=== PATIENT | female | born 1955 | race Caucasian/White ===

== ENCOUNTER → 2021-06-04 | Outpatient (CLI) | payer OTHER, MEDICARE | LOC: RAD 16:18 | DX: M51.36 Other intervertebral disc degeneration, lumbar region (principal); M47.816 Spondylosis without myelopathy or radiculopathy, lumbar region ==

== ENCOUNTER → 2021-07-01 | Outpatient (CLI) | payer OTHER, MEDICARE ==
[2021-07-01 18:14] LABS: ALBUMIN 4.5 g/dL (3.4-4.8); POTASSIUM 4.2 mmol/L (3.5-5.1)
[2021-07-01 18:15] LABS: CALCIUM 10.4 mg/dL (8.3-10.5)
[2021-07-01 18:17] LABS: TOTAL PROTEIN 7.7 g/dL (6.2-8.1)
[2021-07-01 18:19] LABS: TOTAL BILIRUBIN 0.5 mg/dL (0.2-1.2)
[2021-07-01 18:23] LABS: MAGNESIUM 2.39 mg/dL (1.60-2.60)
[2021-07-01 19:26] LABS: BASO # 0.05 (0.02-0.10); EOS # 0.27 (0.04-0.40); EOS % 3.5 % (1.0-5.0); HEMATOCRIT 43.6 % (37.0-47.0); HEMOGLOBIN 14.1 g/dL (12.5-16.0); LYMPH# 2.81 (1.50-4.00); MEAN CELL VOLUME 89 fl (78-100); MEAN CORPUSCULAR HEMOGLOBIN 29 pg (27-31); MEAN CORPUSCULAR HGB CONC 32 g/dL (33-37); MEAN PLATELET VOLUME 11.8 fl (7.4-10.4); MONO # 0.68 (0.20-0.80); NEU # 3.84 (1.40-6.50); PLATELET COUNT 263 K/mm3 (130-400); RED BLOOD COUNT 4.92 M/mm3 (4.10-5.30); WHITE BLOOD COUNT 7.7 K/mm3 (4.8-10.8)
== END ==
LOC: LAB 16:56
PROVIDERS: Physician Assistant
DX: Z13.1 Encounter for screening for diabetes mellitus (principal); E78.5 Hyperlipidemia, unspecified; R25.2 Cramp and spasm; R00.1 Bradycardia, unspecified

== ENCOUNTER → 2021-09-15 | Outpatient (CLI) | payer OTHER, MEDICARE | LOC: LAB 17:01 | DX: Z20.822 Contact with and (suspected) exposure to COVID-19 (principal) ==

== ENCOUNTER → 2022-08-03 | Outpatient (CLI) | payer OTHER, MEDICARE | LOC: RAD 11:51 | DX: M19.072 Primary osteoarthritis, left ankle and foot (principal); Z87.828 Personal history of other (healed) physical injury and trauma ==

== ENCOUNTER → 2023-09-15 | Outpatient (CLI) | payer OTHER, MEDICARE | LOC: RAD 11:33 | DX: N63.15 Unspecified lump in the right breast, overlapping quadrants (principal); N60.01 Solitary cyst of right breast ==